=== PATIENT | male | born 1945 | race Two or more races ===

== ENCOUNTER 2024-05-07 15:46 | Emergency (ER) | payer OTHER ==
[~2024-05-07] VITALS: Ht 182.9 cm; Wt 90.9 kg
[2024-05-07] MEDS: VANCOMYCIN 1GM/200ML 200 ML IV ONE (01:32)
[2024-05-07 17:15] LABS: Basophils # (auto) 0.1 10 ^3/uL (0-0.2); Basophils % (auto) 0.4 % (0.0-2.0); Eosinophils # (auto) 0.3 10 ^3/uL (0-0.8); Eosinophils % (auto) 1.2 % (0.0-7.0); Hematocrit 47.3 % (41.0-53.0); Hemoglobin 15.8 g/dL (13.5-17.5); Lymphocytes # (auto) 1.2 10 ^3/uL (0.4-5.4); Lymphocytes % (auto) 5.1 % (10.0-50.0); Mean Corpuscular Hemoglobin 28.5 pg (28.0-32.0); Mean Corpuscular Hgb Conc. 33.3 g/dL (32.0-36.0); Mean Corpuscular Volume 85.5 fL (80.0-100.0); Monocytes # (auto) 1.5 10 ^3/uL (0-1.3); Monocytes % (auto) 6.1 % (0.0-12.0); Neutrophils % (auto) 87.2 % (37.0-80.0); Red Blood Cells 5.53 10^6/uL (4.5-5.90); White Blood Cell 24.1 10^3/uL (4.4-10.8)
[2024-05-07 17:26] LABS: Chloride 102 mmol/L (98-107); Potassium 3.2 mmol/L (3.5-5.1); Sodium 134 mmol/L (136-145)
[2024-05-07 17:27] LABS: Anion Gap 7 (5-15); Calcium 9.2 mg/dL (8.5-10.1); Carbon Dioxide 25 mmol/L (20-30)
[2024-05-07 17:32] LABS: BUN/Creatinine Ratio 14.3 (10.0-20.0); Blood Urea Nitrogen 11 mg/dL (9-23); Glucose 79 mg/dL (74-106)
[2024-05-07] MEDS: DEXTROSE 10% 1,000 ML IV ONE (18:20)
[2024-05-07 18:38] VITALS: PULSE 99; RESP 20; O2SAT 95
[2024-05-07 18:50] LABS: Urine Bacteria None Seen /hpf (None Seen)
[2024-05-07 19:20] VITALS: PULSE 116; RESP 16; O2SAT 95
[2024-05-07 19:33] LABS: Urine Blood Negative /uL (Negative); Urine Clarity Clear (Clear); Urine Color Light-Yellow (Yellow); Urine Protein, UAD 1+ (Negative); Urine Specific Gravity 1.012 (1.001-1.035); Urine Urobilinogen Normal (Negative); Urine WBC <1 /hpf (0 - 3)
[2024-05-07] MEDS: PIPERACILLIN-TAZOB 3.375GM 100 ML IV ONE (20:49)
[2024-05-07] MEDS: MORPHINE SULFATE INJ 2 MG/ml SYRG IV ONE (20:50)
[2024-05-07] MEDS: ONDANSETRON HCL 4 MG/2 ML VIAL IV ONE (20:51)
[2024-05-07 23:57] LABS: COVID19 ANTIGEN SOFIA FIA NEGATIVE (NEGATIVE); Rapid Influenza A Negative (Negative); Rapid Influenza B Negative (Negative)
[2024-05-08] MEDS: hydrALAZINE HCL 20 MG/ML VL IV ONE (00:23)
[2024-05-08] MEDS: cefTRIAXone 2GM/50ML D5W 50 ML IV ONE (00:23)
[2024-05-08] MEDS: MORPHINE SULFATE INJ 2 MG/ml SYRG IV ONE (01:49)
[2024-05-08] MEDS: dilTIAZem 25 MG/5 ML VIAL IV ONE (01:51)
[2024-05-08] MEDS: ONDANSETRON HCL 4 MG/2 ML VIAL IV ONE (01:51)
[2024-05-08 02:21] VITALS: BP 109/46; PULSE 113; RESP 22; TEMP 98; O2SAT 93
[2024-05-08] MEDS: DEXTROSE (50%) 50ML SYRG IV ONE (02:40)
== END 2024-05-08 02:40 | disposition short-term general hospital (02) ==
LOC: EDBD 15:46 → ER 15:46
DX: E11.649 Type 2 diabetes mellitus with hypoglycemia without coma (principal); I10 Essential (primary) hypertension; E78.5 Hyperlipidemia, unspecified; I48.91 Unspecified atrial fibrillation; Z20.822 Contact with and (suspected) exposure to COVID-19
CPT/HCPCS: 36415; 70450; 71045; 80048; 81001; 82962; 83605; 84484; 85025; 87040; 87426; 87804; 93005; 96365; 96366; 96367; 96368; 96375; 96376; 99285; J0360; J0696; J2270; J2405; J2543